=== PATIENT | male | born 1995 | race Caucasian/White ===

== ENCOUNTER 2024-04-02 18:09 | Emergency (ER) | payer SELFPAY ==
[2024-04-02 18:20] VITALS: BP 143/85; PULSE 120; RESP 18; TEMP 37.2; O2SAT 98
[2024-04-02 18:25] VITALS: BP 159/96; PULSE 107; RESP 20; O2SAT 97
--- NOTE | 2024-04-02 18:25 | ECG_ITS ---
[facility] Test Date: 2024-04-02 Pat Name: Panfilo Marlow Department: Room: Gender: Male Venereal Disease Control Head: : 1995 Requested By: Helio Lowe Order Number: [id number] Parker MD: Ariana Esquivel M.D. Measurements Intervals [place] Rate: 124 P: 77 [place]: 117 QRS: 106 QRSD: 98 T: 0 QT: 309 QTc: 445 Interpretive Statements SINUS TACHYCARDIA WITH SHORT [place] INTERVAL RIGHT AXIS DEVIATION [QRS AXIS > 100] No previous ECG available for comparison Electronically Signed On 04-03-2024 0:09:10 CDT by Ariana Esquivel M.D. [id number]
--- NOTE | 2024-04-02 18:38 | XRR_ITS ---
PROCEDURE INFORMATION: Exam: XR Chest Exam date and time: 04/02/2024 6:46 PM Age: 28 years old Clinical indication: Shortness of breath and other: Swelling in legs; Additional info: Dyspnea TECHNIQUE: Imaging protocol: Radiologic exam of the chest. Views: 1 view. COMPARISON: No relevant prior studies available. FINDINGS: Lungs: Unremarkable. No consolidation. Pleural spaces: Unremarkable. No pleural effusion. No pneumothorax. Heart/Mediastinum: Unremarkable. No cardiomegaly. Bones/joints: Unremarkable. XR/XR chest 1V portable [id number] IMPRESSION: No acute findings.
[2024-04-02 18:39] LABS: Add Urine Microscopic? NO; Charge for UA Resulting for Rev
--- NOTE | 2024-04-02 18:39 | ED_ITS ---
HPI - SOB/Dyspnea 2 General: Chief Complaint: Shortness of Breath/Dyspnea Stated Complaint: hands ankle swollen SOB leg pain Time Seen by Provider: 04/02/24 18:38 History of Present Illness: HPI Narrative: 28-year-old male patient comes in today with complaints of swelling in the hands and feet for the last 3 to 4 months with some shortness of breath. Patient denies chest pain but has some mid back pain. Patient does take medications for blood pressure. Patient has a history of hepatitis a and low calcium levels. Patient is a daily tobacco user and had been a 2-3 beer a day drinker up until 2 days ago. Patient denies any marijuana or methamphetamines. Patient appears nontoxic. Patient has significant sunburn to his bilateral lower extremities. Review of Systems 2 General: Reports: 10 or more systems reviewed and unremarkable except in HPI and below Skin/Breast: Reports: erythema PFSH ED 2 PFSH: Social History Smoking and tobacco/nicotine status: current every day tobacco/nicotine user (1-10/09 PPD) Physical Exam 2 Const: COMMON NORMALS: alert HENMT: COMMON NORMALS: normocephalic HEAD & SCALP: normocephalic Neck/C-Spine: GENERAL: Yes normal visual inspection Resp: COMMON NORMALS: normal respiratory effort and clear to auscultation bilaterally AUSCULTATION: clear to auscultation bilaterally Cardio: COMMON NORMALS: regular rate and regular rhythm RATE: regular rate RHYTHM: regular rhythm GI: COMMON NORMALS: Soft to palpation and non-tender PALPATION: Yes Soft to palpation Back/Pelvis: COMMON NORMALS: thoracic and lumbar spine normal to inspection Extremity: COMMON NORMALS: full ROM NARRATIVE EXTREMITY EXAM: Mild swelling to bilateral ankles, sunburn noted to bilateral lower legs Neuro: SENSORIUM/ORIENTATION: Yes alert Skin: NARRATIVE SKIN EXAM: sun iraheta noted to bilateral legs. Course 2 Vital Signs: Vital signs: Vital Signs Temperature 98.9 F 04/02/24 18:20 Pulse Rate 115 H 04/02/24 18:55 Respiratory Rate 20 H 04/02/24 18:25 Blood Pressure 141/90 04/02/24 18:55 Pulse Oximetry 94 04/02/24 18:55 Oxygen Delivery Me thod Room Air 04/02/24 18:20 MDM - SOB/Dyspnea Medical Decision Making 28-year-old male patient comes in today with some shortness of breath and swelling in the extremities. On exam patient has a sunburn to bilateral lower legs. There might be some mild pedal edema. Pulses are intact and cap refill is intact. Vital signs are normal except for some mild elevation of blood pressure and pulse. Lungs are clear to auscultation. Differential diagnosis includes hypothyroidism, lymphedema, venous insufficiency, heat edema, edema secondary to sunburn. CBC CMP was unremarkable. Troponin was less than 6. D- dimer was elevated at 1.26. Chest x-ray was unremarkable. CTA was performed to rule out PE there was no evidence of pulmonary embolism although it was noted that patient had a small nodule in the right lower lobe that suggested follow-up in 1 year for a repeat CT scan. I discussed these findings with the patient with recommendations for starting hydrochlorothiazide for better control of patient's blood pressure and also to help with the swelling in his hands and feet. Patient reported understanding of care plan and need for follow-up or return to the ER. Lab Data 04/02/24 18:23 04/02/24 18:23 Labs/Radiology: Radiology Impressions Chest X-Ray 04/02/24 18:38 IMPRESSION: No acute findings. Chest CTA 04/02/24 19:14 IMPRESSION: 1. No evidence of pulmonary embolism. 2. Mild mosaic attenuation of the pulmonary parenchyma. Nonspecific finding likely reflecting small airway disease. 3. Mild diffuse bronchial wall thickening. Acute or chronic bronchitis. 4. 3 mm subpleural micronodule in the anterior aspect of the right lower lobe. See comments for follow-up. Comments: For patients at low risk (minimal or absent history of smoking and of other known risk factors), no routine follow-up is indicated. For patients at high risk (history of smoking or of other known risk factors), consider optional CT Chest at 12 months. (Reference: Lynda) References: Lynda Haile, et al. Guidelines for Management of Incidental Pulmonary Nodules Detected on CT Images: From the Fleischner Society 2017. Radiology. 2017;284(1):228-243. Laboratory Results WBC 9.09 10^3/uL (3.29-11.43) 04/02/24 18:23 RBC 4.62 10^6/uL (3.85-5.65) 04/02/24 18: Hgb 15.30 g/dL (11.27-16.99) 04/02/24 18: Hct 43.4 % (37-53) 04/02/24 18: MCV 93.9 fl (82-101) 04/02/24 18:23 MCH 33.1 pg (27-33) H 04/02/24 18: MCHC 35.3 g/dL (30-55) 04/02/24 18: RDW 12.2 % (12.1-15.1) 04/02/24 18: Plt Count 268 10^3/cmm (157-399) 04/02/24 18: MPV 8.7 fL (7.4-10.4) 04/02/24 18: Neut % (Auto) 48.5 % 04/02/24 18: Lymph % (Auto) 38.7 % 04/02/24 18: [place] % (Auto) 9.5 % 04/02/24 18: Eos % (Auto) 1.7 % 04/02/24 18:23 Baso % (Auto) 1.0 % 04/02/24 18: Neut # (Auto) 4.42 10^3/uL (1.8-7.7) 04/02/24 18: Lymph # (Auto) 3.5 10^3/uL (0.8-4.8) 04/02/24 18:23 [place] # (Auto) 0.9 10^3/uL (0.2-0.9) 04/02/24 18: Eos # (Auto) 0.2 10^3/uL (0.0-0.8) 04/02/24 18: Baso # (Auto) 0.1 10^3/uL (0.0-0.1) 04/02/24 18: Nucleated RBC % (auto) 0 % 04/02/24 18: Nucleated RBCs # 0.0 /100WBC 04/02/24 18: ESR 10 mm/hr (0-10) 04/02/24 18: PT 12.00 SECONDS (12.1-14.9) L 04/02/24 18: INR 0.86 (0.8-1.2) 04/02/24 18:23 APTT 27.8 SECONDS (23.9-36.7) 04/02/24 18:23 D-Dimer 1.26 ug/mLFEU (0-0.59) H 04/02/24 18:23 Sodium 139 mmol/L (136-145) 04/02/24 18:23 Potassium 4.3 mmol/L (3.5-5.1) 04/02/24 18:23 Chloride 105 mmol/L (98-107) 04/02/24 18:23 Carbon Dioxide 21 mmol/L (22-29) L 04/02/24 18:23 Anion Gap 17.3 (5-19) 04/02/24 18:23 BUN 7 mg/dL (6-20) 04/02/24 18:23 Creatinine 0.9 mg/dL (0.7-1.2) 04/02/24 18:23 GFR Calculation 99.1 mL/min (90-130) 04/02/24 18:23 Glucose 107 mg/dL (65-115) 04/02/24 18:23 Calculated Osmolality 286 mOsm/kg (285-295) 04/02/24 18:23 Calcium 9.2 mg/dL (8.5-10.5) 04/02/24 18:23 Total Bilirubin 0.2 mg/dL (0.15-1.2) 04/02/24 18:23 AST 45 U/L (0-40) H 04/02/24 18:23 ALT 88 U/L (0-41) H 04/02/24 18:23 Alkaline Phosphatase 91 U/L (40-130) 04/02/24 18:23 Troponin T Baseline < 6 ng/L (0-15) 04/02/24 18:23 Troponin T 120 Minute 6.00 ng/L (0-15) 04/02/24 20:18 Delta Troponin T 0.99601 ABS# (0-10) 04/02/24 20:18 C-Reactive Protein 4.4 mg/L (0.0-4.9) 04/02/24 18:23 NT-Pro-B Natriuret Pep < 36 pg/mL (0-125) 04/02/24 18:23 Total Protein 7.2 g/dL (6.6-8.7) 04/02/24 18:23 Albumin 4.5 g/dL (3.5-5.2) 04/02/24 18:23 Globulin 2.7 g/dL (1.3-4.6) 04/02/24 18:23 TSH 4.12 uIU/mL (0.27-4.20) 04/02/24 18:23 Urine Color Yellow (Yellow) 04/02/24 18:23 Urine Appearance Clear (CLEAR) 04/02/24 18:23 Urine pH 5 (5-7) 04/02/24 18:23 Ur Specific [place] 1.010 (1.005-1.030) 04/02/24 18:23 Urine Protein Neg (Negative) 04/02/24 18:23 Urine Glucose (UA) Norm (Normal) 04/02/24 18:23 Urine Ketones Negative (Negative) 04/02/24 18:23 Urine Blood Neg (Negative) 04/02/24 18:23 Urine Nitrate Negative (Negative) 04/02/24 18:23 Urine Bilirubin Neg (Negative) 04/02/24 18:23 Urine Urobilinogen Norm mg/dL (Negative) 04/02/24 18:23 Ur Leukocyte Esterase Negative (Negative) 04/02/24 18:23 All radiology interpretation(s) finalized by discharge EKG Data EKG 1: I personally reviewed and interpreted this EKG as follows: EKG Interpretation Date: 04/02/24 EKG interpretation time: 18:30 Prior EKG tracings: not available for review Interpretation: EKG shows a sinus tachycardia with a regular rate [address] elevation or ectopy is noted. No prior exam was available for comparison. Computer Generated Interpretation: Sinus tachycardia with short NV interval, right axis deviation, no previous EKG for comparison. EKG 2: I personally reviewed and interpreted this EKG as follows: EKG Interpretation Date: 04/02/24 EKG interpretation time: 20:15 Prior EKG tracings: available for review Interpretation: EKG shows a sinus rhythm with a short NV interval, right axis deviation, no significant changes from prior exam at 04/02/1824. Computer Generated Interpretation: Sinus rhythm with short NV interval, right axis deviation. Discharge Plan Discharge Patient Disposition: Home Clinical Impression: Edema, peripheral Hypertension Qualifiers: Hypertension type: unspecified Qualified Code(s): I10 - Essential (primary) hypertension Condition: Stable Prescriptions: New hydrochlorothiazide 12.5 mg tablet 12.5 mg PO DAILY Qty: 30 0RF No Action lisinopril 10 mg tablet 10 mg PO DAILY pantoprazole 40 mg tablet,delayed release (DR/EC) 40 mg PO DAILY diphenoxylate-atropine [Lomotil] 2.5-0.025 mg tablet 1 tab PO QID PRN cholecalciferol (vitamin D3) 25 mcg (1,000 unit) capsule 25 mcg PO DAILY calcium carbonate 600 mg calcium (1,500 mg) tablet 600 mg PO DAILY Discharge Orders: Discharge ED (Routine); Ordered 04/02/24 Ordered By: Sonny Brown Discharge Diet: Usual diet Discharge Activity: Increase activity as tolerated Patient Instructions: Hypertension (ED) Activity Restrictions/Additional Instructions: Follow-up with primary care in 1 to 2 weeks for recheck. Continue with lisinopril 10 mg daily, add hydrochlorothiazide 12-1/2 mg daily. This will help with the swelling in your hands and feet and also help improve your blood pressure. Eat a healthy diet, stop nicotine. Return to ER for severe chest pain, increasing shortness of breath, or new concerns. 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
[2024-04-02 18:50] LABS: Basophils # 0.1 10^3/uL (0.0-0.1); Eosinophils # 0.2 10^3/uL (0.0-0.8); Eosinophils % 1.7 %; Hematocrit 43.4 % (37-53); Lymphocytes # 3.5 10^3/uL (0.8-4.8); Lymphocytes % 38.7 %; Mean Corpuscular HGB Conc 35.3 g/dL (30-55); Mean Corpuscular Hemoglobin 33.1 pg (27-33); Mean Corpuscular Volume 93.9 fl (82-101); Mean Platelet Volume 8.7 fL (7.4-10.4); Monocytes # 0.9 10^3/uL (0.2-0.9); Monocytes % 9.5 %; Neutrophils # 4.42 10^3/uL (1.8-7.7); Neutrophils % 48.5 %; Nucleated Red Blood Cells % 0 %; Platelet Count 268 10^3/cmm (157-399); Red Blood Count 4.62 10^6/uL (3.85-5.65); Red Cell Distribution Width 12.2 % (12.1-15.1); White Blood Count 9.09 10^3/uL (3.29-11.43)
[2024-04-02 18:53] LABS: Bilirubin Urine Neg (Negative); Blood Urine Neg (Negative); Glucose Urine UA Norm (Normal); Ketones Urine Negative (Negative); Leukocyte Esterase Urine Negative (Negative); Nitrate Urine Negative (Negative); Protein Urine Neg (Negative); Urine Appearance Clear (CLEAR); Urine Color Yellow (Yellow); Urobilinogen Urine Norm (Negative); pH Urine 5 (5-7)
[2024-04-02 18:55] VITALS: BP 141/90; PULSE 115; O2SAT 94
[2024-04-02 19:03] LABS: INR 0.86 (0.8-1.2); Partial Thromboplastin Time 27.8 SECONDS (23.9-36.7)
[2024-04-02 19:06] LABS: D Dimer 1.26 ug/mLFEU (0-0.59)
[2024-04-02 19:09] LABS: Troponin(5th) Baseline < 6 ng/L (0-15)
[2024-04-02 19:13] LABS: Erythrocyte Sedimentation Rate 10 mm/hr (0-10)
--- NOTE | 2024-04-02 19:14 | CTR_ITS ---
PROCEDURE INFORMATION: Exam: CTA Chest With Contrast Exam date and time: 04/02/2024 7:26 PM Age: 28 years old Clinical indication: Dyspnea; Additional info: Dyspnea, tachy, elevated d dimer TECHNIQUE: Imaging protocol: Computed tomographic angiography of the chest with contrast. Exam focused on the arteries. 3D rendering (Not supervised by radiologist): MIP and/or 3D reconstructed images were created by the technologist. Radiation optimization: All CT scans at this facility use at least one of these dose optimization techniques: automated exposure control; mA and/or kV adjustment per patient size (includes targeted exams where dose is matched to clinical indication); or iterative reconstruction. Contrast material: OMNI 350; Contrast volume: 61 ml; Contrast route: INTRAVENOUS (IV); COMPARISON: CR (CHEST, ) 04/02/2024 6:46 PM RADIATION DOSE METRICS: Total DLP (mGy-cm): 420.2 FINDINGS: Pulmonary arteries: The pulmonary arteries are adequately visualized to the distal segmental level. No filling defects are identified to suggest pulmonary artery embolism. The main pulmonary artery is normal in size. There is no evidence of right heart strain. Aorta: The aorta is normal in course and caliber. No significant atherosclerotic calcifications are present. Lungs: Mild mosaic attenuation of the pulmonary parenchyma. Mild diffuse bronchial wall thickening. No pulmonary consolidation. No pulmonary mass or suspicious pulmonary nodule. 3 mm subpleural micronodule in the anterior aspect of the right lower lobe. No pulmonary mass or suspicious pulmonary nodule. Pleural spaces: No pleural effusion or pneumothorax. Heart: Heart size is within normal limits. There is no pericardial effusion or pericardial thickening. Lymph nodes: No enlarged lymph nodes are identified. Liver: There is diffuse decreased attenuation of the hepatic parenchyma consistent with fatty infiltration. The liver is otherwise normal. There are no hepatic masses identified. Bones/joints: No acute osseous abnormalities are seen. Soft tissues: The soft tissues are within normal limits. CT/CT angio chest PE protcl [id number] IMPRESSION: 1. No evidence of pulmonary embolism. 2. Mild mosaic attenuation of the pulmonary parenchyma. Nonspecific finding likely reflecting small airway disease. 3. Mild diffuse bronchial wall thickening. Acute or chronic bronchitis. 4. 3 mm subpleural micronodule in the anterior aspect of the right lower lobe. See comments for follow-up. Comments: For patients at low risk (minimal or absent history of smoking and of other known risk factors), no routine follow-up is indicated. For patients at high risk (history of smoking or of other known risk factors), consider optional CT Chest at 12 months. (Reference: Lynda) References: Lynda Haile, et al. Guidelines for Management of Incidental Pulmonary Nodules Detected on CT Images: From the Fleischner Society 2017. Radiology. 2017;284(1):228-243.
[2024-04-02 19:20] LABS: Alanine Aminotransferase 88 U/L (0-41); Albumin Level 4.5 g/dL (3.5-5.2); Alkaline Phosphatase 91 U/L (40-130); Aspartate Amino Transferase 45 U/L (0-40); Blood Urea Nitrogen 7 mg/dL (6-20); C Reactive Protein 4.4 mg/L (0.0-4.9); Calcium 9.2 mg/dL (8.5-10.5); Carbon Dioxide 21 mmol/L (22-29); Chloride 105 mmol/L (98-107); Creatinine Clr Calc Pharmacy 141.0655; Globulin 2.7 g/dL (1.3-4.6); Glomerular Filtration Rate 99.1 mL/min (90-130); Glucose 107 mg/dL (65-115); NT Pro B Type Natriuretic Pept < 36 pg/mL (0-125); Osmolality Calculated 286 mOsm/kg (285-295); Sodium 139 mmol/L (136-145); Thyroid Stimulating Hormone 4.12 uIU/mL (0.27-4.20); Total Bilirubin 0.2 mg/dL (0.15-1.2); Total Protein 7.2 g/dL (6.6-8.7)
[2024-04-02 19:24] LABS: Anion Gap 17.3 (5-19); Potassium 4.3 mmol/L (3.5-5.1)
[2024-04-02] MEDS: iohexol 350 mg/mL 500 mL Btl (per mL) IV (19:34)
--- NOTE | 2024-04-02 20:09 | ECG_ITS ---
[facility] Test Date: 2024-04-02 Pat Name: Panfilo Marlow Department: Room: Gender: Male Surgical Tech: : 1995 Requested By: Sonny Stark Order Number: [id number] Parker MD: Ariana Esquivel M.D. Measurements Intervals [place] Rate: 94 P: 68 [place]: 112 QRS: 101 QRSD: 101 T: 22 QT: 344 QTc: 432 Interpretive Statements SINUS RHYTHM WITH SHORT [place] INTERVAL RIGHT AXIS DEVIATION [QRS AXIS > 100] Compared to ECG 04/02/2024 18:24:04 Sinus tachycardia no longer present Electronically Signed On 04-03-2024 0:19:45 CDT by Ariana Esquivel M.D. [id number]
[2024-04-02 20:42] LABS: Troponin 5 2HR Delta 0.00001 ABS# (0-10)
[2024-04-02] MEDS: hydroCHLOROthiazide 25 mg Tablet 12.5 MG PO (21:06)
[2024-04-02 21:07] VITALS: BP 123/95; PULSE 100; RESP 16; O2SAT 98
== END 2024-04-02 21:09 | disposition home or self-care (01) ==
PROVIDERS: Emergency Provider Nurse Practitioner Family
DX: I10 Essential (primary) hypertension (principal); R60.0 Localized edema; F17.210 Nicotine dependence, cigarettes, uncomplicated
CPT/HCPCS: 36415; 71045; 71275; 80053; 81003; 83880; 84443; 84484; 85025; 85378; 85610; 85651; 85730; 86140; 93005; 99285; Q9967